=== PATIENT | male | born 1990 | race Caucasian/White ===

== ENCOUNTER 2017-06-29 21:54 | Emergency (ER) | payer OTHER ==
[2017-06-29 22:28] LABS: BILIRUBIN NEGATIVE (NEGATIVE); BLOOD NEGATIVE Ery/uL (NEGATIVE); CLARITY CLEAR (CLEAR); COLOR YELLOW (YELLOW); GLUCOSE (U) NORMAL (NORMAL); KETONE (U) NEGATIVE (NEGATIVE); LEUKOCYTES NEGATIVE Leu/uL (NEGATIVE); NITRITE NEGATIVE (NEGATIVE); PROTEIN NEGATIVE (NEGATIVE)
[2017-06-30 00:27] LABS: BASOPHIL 0.1 % (0-2); HCT 40.4 % (42.0-52.0); HGB 14.6 g/dl (13.2-18.0); LYMPHOCYTE 33.9 % (15-48); MCH 27.9 pg (25.0-31.0); MCHC 36.1 g/dL (32.0-36.0); MCV 77.2 fL (78.0-100.0); MONOCYTE 7.7 % (0-12); MPV 9.2 fL (6.0-9.5); NEUTROPHIL 55.3 % (41-80); PLT 265 K/uL (150-400); RBC 5.23 M/uL (4.70-6.00); RDW 12.9 % (11.5-14.0); WBC 7.3 K/uL (4.0-10.5)
[2017-06-30 00:38] LABS: INR 1.07 (0.9-1.2); PTT 38.8 SECONDS (24.3-32.1)
[2017-06-30 00:39] LABS: AMPHETAMINES NEGATIVE (NEGATIVE); BARBITURATES NEGATIVE (NEGATIVE); BENZODIAZEPINES NEGATIVE (NEGATIVE); COCAINE NEGATIVE (NEGATIVE); MARIJUANA (THC) NEGATIVE (NEGATIVE); METHADONE NEGATIVE (NEGATIVE); TRICYCLIC ANTIDEPRESSANT NEGATIVE (NEGATIVE)
[2017-06-30 00:45] LABS: LACTIC ACID 0.7 mmol/L (0.5-2.2)
[2017-06-30 01:08] LABS: ALBUMIN 4.2 g/dL (3.5-5.0); BILIRUBIN - TOTAL 0.3 mg/dL (0.1-1.0); CREATININE 1.1 mg/dL (0.7-1.2); GLOBULIN (CALCULATION) 2.4 g/dL (2.2-4.2); TOTAL PROTEIN 6.6 g/dL (6.4-8.3)
== END 2017-06-30 02:19 | disposition home or self-care (01) ==
LOC: FER 21:54
PROVIDERS: Internal Medicine
DX: K46.9 Unspecified abdominal hernia without obstruction or gangrene (principal); F17.210 Nicotine dependence, cigarettes, uncomplicated
CPT/HCPCS: 36415; 80053; 80305; 81003; 83605; 85025; 85610; 85730

== ENCOUNTER 2017-06-30 21:08 | Emergency (ER) | payer OTHER ==
[2017-06-30 21:53] LABS: BASOPHIL 0.1 % (0-2); EOSINOPHIL 3.3 % (0-5); HCT 40.7 % (42.0-52.0); HGB 14.8 g/dl (13.2-18.0); LYMPHOCYTE 28.9 % (15-48); MCH 28.1 pg (25.0-31.0); MCHC 36.4 g/dL (32.0-36.0); MCV 77.2 fL (78.0-100.0); MONOCYTE 7.1 % (0-12); MPV 9.2 fL (6.0-9.5); NEUTROPHIL 60.6 % (41-80); PLT 280 K/uL (150-400); RBC 5.27 M/uL (4.70-6.00); RDW 12.9 % (11.5-14.0); WBC 7.2 K/uL (4.0-10.5)
[2017-06-30 22:13] LABS: POTASSIUM 3.9 mmol/L (3.5-5.1)
[2017-06-30 22:38] LABS: BILIRUBIN NEGATIVE (NEGATIVE); BLOOD NEGATIVE Ery/uL (NEGATIVE); CLARITY CLEAR (CLEAR); COLOR YELLOW (YELLOW); GLUCOSE (U) NORMAL (NORMAL); KETONE (U) NEGATIVE (NEGATIVE); LEUKOCYTES NEGATIVE Leu/uL (NEGATIVE); NITRITE NEGATIVE (NEGATIVE); PROTEIN NEGATIVE (NEGATIVE); SPECIFIC GRAVITY 1.015 (1.001-1.030); pH 6.5 (5.0-9.0)
== END 2017-06-30 23:20 | disposition home or self-care (01) ==
LOC: FER 21:08
PROVIDERS: Emergency Medicine Emergency Medical Services
DX: K40.90 Unilateral inguinal hernia, without obstruction or gangrene, not specified as recurrent (principal); F17.210 Nicotine dependence, cigarettes, uncomplicated; Z98.890 Other specified postprocedural states
CPT/HCPCS: 36415; 80048; 81003; 83605; 85025; J1885; J2270; J2405

== ENCOUNTER 2020-12-15 23:40 | Emergency (ER) | payer SELFPAY ==
[~2020-12-15 23:40] MED LIST: ATARAX25 MG PO; LOTRISONE CREAM15 GM TOP; NAPROXEN500 MG PO; NORCO 5-325 TA1 EACH PO
== END 2020-12-16 00:02 | disposition left against medical advice (07) ==
LOC: FER 23:40
DX: I10 Essential (primary) hypertension (principal); R20.2 Paresthesia of skin; Z53.8 Procedure and treatment not carried out for other reasons
CPT/HCPCS: 93005

== ENCOUNTER 2021-04-17 02:49 | Emergency (ER) | payer SELFPAY ==
[2021-04-17 03:51] LABS: BILIRUBIN NEGATIVE (NEGATIVE); BLOOD NEGATIVE Ery/uL (NEGATIVE); CLARITY CLEAR (CLEAR); COLOR YELLOW (YELLOW); GLUCOSE (U) NORMAL (NORMAL); LEUKOCYTES TRACE Leu/uL (NEGATIVE); NITRITE NEGATIVE (NEGATIVE); PROTEIN NEGATIVE (NEGATIVE); pH 6.5 (5.0-9.0)
[2021-04-17 03:58] LABS: BACTERIA TRACE; URINARY RBC RARE
[2021-04-17 04:00] LABS: BASOPHIL 0.5 % (0-2); EOSINOPHIL 2.8 % (0-5); HCT 49.5 % (42.0-52.0); MCH 29.2 pg (25.0-31.0); MCHC 34.3 g/dL (32.0-36.0); MCV 84.9 fL (78.0-100.0); MONOCYTE 9.9 % (0-12); MPV 9.8 fL (6.0-9.5); NEUTROPHIL 65.5 % (41-80); NRBC 0; PLT 326 K/uL (150-400); RBC 5.83 M/uL (4.70-6.00); RDW 13.6 % (11.5-14.0); WBC 8.6 K/uL (4.0-10.5)
[2021-04-17 04:14] LABS: ALBUMIN 4.1 g/dL (3.4-5.0); BILIRUBIN - TOTAL 0.5 mg/dL (0.2-1.0); BUN/CREAT RATIO (CALC) 9.7 RATIO; CREATININE 1.03 mg/dL (0.67-1.17); GLOBULIN (CALCULATION) 3.4 g/dL; POTASSIUM 4.4 mmol/L (3.5-5.1); TOTAL PROTEIN 7.5 g/dL (6.4-8.2)
[2021-04-17 04:20] LABS: LACTIC ACID 0.7 mmol/L (0.4-1.9)
== END 2021-04-17 04:57 | disposition home or self-care (01) ==
LOC: FER 02:49
PROVIDERS: Emergency Medicine Emergency Medical Services
DX: T67.9XXA Effect of heat and light, unspecified, initial encounter (principal); F17.210 Nicotine dependence, cigarettes, uncomplicated; Z98.890 Other specified postprocedural states; X30.XXXA Exposure to excessive natural heat, initial encounter
CPT/HCPCS: 36415; 70450; 71045; 80053; 81001; 82550; 83605; 83690; 84484; 85025; 87088; 93005; J1885; J7120

== ENCOUNTER 2021-07-20 15:47 | Emergency (ER) | payer OTHER, MEDICAID ==
[2021-07-20] MEDS ORDERED: NAPROXEN500 MG PO (18:19)
[2021-07-20] MEDS ORDERED: HYDROCODON-ACE1 EAC2 PO (18:20)
== END 2021-07-20 18:36 | disposition home or self-care (01) ==
LOC: FER 15:47
DX: S93.601A Unspecified sprain of right foot, initial encounter (principal); V09.9XXA Pedestrian injured in unspecified transport accident, initial encounter; Y92.410 Unspecified street and highway as the place of occurrence of the external cause
CPT/HCPCS: 73630